=== PATIENT | male | born 1965 | race Caucasian/White ===

== ENCOUNTER 2023-01-30 18:07 | Inpatient (IN) | payer OTHER ==
[2023-01-30] MEDS ORDERED: MAGNESIUM HYDROX 2400MG/30ML ORAL SUSPENSION 30 ML CUP PO PRN (19:28)
[2023-01-30] MEDS ORDERED: BISMUTH SUBSALICYLATE 524 MG/30 ML PO PRN (19:28)
[2023-01-30] MEDS ORDERED: DICYCLOMINE HCL 10 MG CAPSULE PO PRN (19:28)
[2023-01-30] MEDS ORDERED: BENZOCAINE/MENTHOL (CHLORASEPTIC ) LOZENGE MM PRN (19:28)
[2023-01-30] MEDS ORDERED: LOPERAMIDE HCL 2 MG CAPSULE PO PRN (19:28)
[2023-01-30] MEDS ORDERED: IBUPROFEN 400 MG TABLET (FP) PO PRN (19:28)
[2023-01-30] MEDS ORDERED: MAG HYDROX/AL HYDROX/SIMETH 30 ML UNIT-DOSE CUP PO PRN (19:28)
[2023-01-30] MEDS ORDERED: NICOTINE POLACRILEX 4 MG GUM BUC PRN (19:28)
[2023-01-30] MEDS ORDERED: ACETAMINOPHEN 325 MG TABLET (FP) PO PRN (19:28)
[2023-01-30] MEDS ORDERED: guaiFENesin 600 MG TABLET.ER (FP) PO PRN (19:28)
[2023-01-30] MEDS ORDERED: ONDANSETRON *ODT* 4 MG TABLET SL PRN (19:28)
[2023-01-30] MEDS ORDERED: LORazepam 1 MG TABLET PO PRN (19:28)
[2023-01-30] MEDS ORDERED: POLYETHYLENE GLYCOL (HEALTHYLAX) 3350 17 GM PACKET PO PRN (19:28)
[2023-01-30] MEDS ORDERED: NALOXONE HCL 0.4 MG/ML VIAL IM PRN (19:28)
[2023-01-30] MEDS ORDERED: NALOXONE HCL (KLOXXADO) 8 MG SPRAY NS PRN (19:28)
[2023-01-30] MEDS ORDERED: BENZONATATE 200 MG CAPSULE PO PRN (19:28)
[2023-01-30 19:40] VITALS: BMI 26.0
[2023-01-30] MEDS: THIAMINE HCL 100 MG TABLET (FP) PO SCH (22:37)
[2023-01-30] MEDS: MELATONIN 5 MG TABLETS PO SCH (22:38)
[2023-01-30] MEDS: IBUPROFEN 600 MG TABLET (FP) PO PRN (22:40)
[2023-01-30] MEDS: LORazepam 2 MG TABLET PO SCH (22:41)
[2023-01-31] MEDS: LORazepam 2 MG TABLET PO SCH ×4 (06:00→22:11)
[2023-01-31] MEDS: NICOTINE 21 MG/24 HOURS TOPICAL PATCH TD SCH (10:42)
[2023-01-31] MEDS: PRENATAL VITAMINS W/ FOLIC ACID TABLET (FP) PO SCH (10:42)
[2023-01-31 11:02] LABS: HEMATOCRIT 42.3 % (35.4-49); HEMOGLOBIN 14.7 GM/dL (11.7-16.9); MCH 36.2 pg (25.7-33.7); MCHC 34.7 g/dl (32.0-35.9); MEAN CELL VOLUME 104.4 fl (80-96); MEAN PLT VOLUME 10.4 fl (7.5-11.1); PLATELET COUNT 167 10^3/uL (134-434); RBC 4.05 M/mm3 (4.00-5.60); RDW 14.8 % (11.9-15.9); WHITE BLOOD COUNT 8.3 K/mm3 (4.0-10.0)
[2023-01-31 11:11] LABS: ALBUMIN 3.7 g/dl (3.4-5.0)
[2023-01-31 11:12] LABS: BLOOD UREA NITROGEN 10.6 mg/dL (7-18); CREATININE 0.7 mg/dL (0.55-1.3)
[2023-01-31 11:13] LABS: CALCIUM 9.4 mg/dL (8.5-10.1)
[2023-01-31 11:14] LABS: BILIRUBIN,TOTAL 0.9 mg/dL (0.2-1); TOT PROT 7.3 g/dl (6.4-8.2)
[2023-01-31] MEDS: IBUPROFEN 600 MG TABLET (FP) PO PRN (17:22)
[2023-01-31] MEDS: MELATONIN 5 MG TABLETS PO SCH (22:10)
[2023-01-31] MEDS: THIAMINE HCL 100 MG TABLET (FP) PO SCH (22:10)
[2023-02-01] MEDS: LORazepam 1 MG TABLET PO SCH ×2 (06:00→10:26)
[2023-02-01 09:21] VITALS: BP 122/65; PULSE 60; RESP 18; TEMP 98
[2023-02-01] MEDS: PRENATAL VITAMINS W/ FOLIC ACID TABLET (FP) PO SCH (10:25)
[2023-02-01] MEDS: NICOTINE 21 MG/24 HOURS TOPICAL PATCH TD SCH (10:31)
[2023-02-02] MEDS ORDERED: LORazepam 0.5 MG TABLET PO PRN
[2023-02-02] MEDS ORDERED: LORazepam 0.5 MG TABLET PO SCH (05:00)
[2023-02-03] MEDS ORDERED: LORazepam 0.5 MG TABLET PO ONE (05:00)
== END 2023-02-01 13:24 | disposition left against medical advice (07) | DRG 770 ==
LOC: YASAS 18:07 → Y3N 20:31
PROVIDERS: ADMIT Allergy & Immunology; ATTEND Surgery
PROC: HZ2ZZZZ Detoxification Services for Substance Abuse Treatment (ICD-10-PCS; principal; 2023-01-30)
DX: F10.230 Alcohol dependence with withdrawal, uncomplicated (principal); F17.210 Nicotine dependence, cigarettes, uncomplicated; F10.280 Alcohol dependence with alcohol-induced anxiety disorder; F10.282 Alcohol dependence with alcohol-induced sleep disorder; K70.30 Alcoholic cirrhosis of liver without ascites; M54.50 Low back pain, unspecified; G89.29 Other chronic pain
CPT/HCPCS: 36415; 80053; 85027; 86780; 87811; 93005; 93010; C9803-CS; U0003; U0005

== ENCOUNTER 2025-05-26 17:06 | Inpatient (IN) | payer OTHER ==
[2025-05-26 18:24] VITALS: BMI 24.1
[2025-05-26] MEDS ORDERED: MAG HYDROX/AL HYDROX/SIMETH 30 ML UNIT-DOSE CUP PO PRN (18:38)
[2025-05-26] MEDS ORDERED: hydrOXYzine PAMOATE 25 MG CAPSULE (FP) PO PRN (18:38)
[2025-05-26] MEDS ORDERED: NICOTINE POLACRILEX 2 MG LOZENGE BC PRN (18:38)
[2025-05-26] MEDS ORDERED: ACETAMINOPHEN 325 MG TABLET (FP) PO PRN (18:38)
[2025-05-26] MEDS ORDERED: DICYCLOMINE HCL 10 MG CAPSULE PO PRN (18:38)
[2025-05-26] MEDS ORDERED: BENZONATATE 200 MG CAPSULE PO PRN (18:38)
[2025-05-26] MEDS ORDERED: METHOCARBAMOL 500 MG TABLET PO PRN (18:38)
[2025-05-26] MEDS ORDERED: IBUPROFEN 400 MG TABLET (FP) PO PRN (18:38)
[2025-05-26] MEDS ORDERED: IBUPROFEN 600 MG TABLET (FP) PO PRN (18:38)
[2025-05-26] MEDS ORDERED: BENZOCAINE/MENTHOL (CHLORASEPTIC ) LOZENGE MM PRN (18:38)
[2025-05-26] MEDS ORDERED: NALOXONE (NARCAN) HCL 4 MG/0.1 ML SPRAY NS PRN (18:38)
[2025-05-26] MEDS ORDERED: guaiFENesin 600 MG TABLET.ER (FP) PO PRN (18:38)
[2025-05-26] MEDS ORDERED: LOPERAMIDE HCL 2 MG CAPSULE PO PRN (18:38)
[2025-05-26] MEDS ORDERED: ONDANSETRON *ODT* 4 MG TABLET SL PRN (18:38)
[2025-05-26] MEDS ORDERED: MAGNESIUM HYDROX 2400MG/30ML ORAL SUSPENSION 30 ML CUP PO PRN (18:38)
[2025-05-26] MEDS ORDERED: BISMUTH SUBSALICYLATE 524 MG/30 ML PO PRN (18:38)
[2025-05-26] MEDS ORDERED: NICOTINE POLACRILEX 2 MG GUM BUC PRN (18:38)
[2025-05-26] MEDS ORDERED: POLYETHYLENE GLYCOL (HEALTHYLAX) 3350 17 GM PACKET PO PRN (18:38)
[2025-05-26] MEDS: THIAMINE 100 MG TABLET PO SCH (22:30)
[2025-05-26] MEDS: MELATONIN 5 MG TABLETS PO SCH (22:30)
[2025-05-27 09:08] VITALS: RESP 14
[2025-05-27 09:16] LABS: MCHC 33.8 g/dl (32.3-36.5); MEAN CELL VOLUME 108.3 fl (79.0-92.2); MEAN PLT VOLUME 12.8 fl (9.4-12.4); RDW 14.4 % (12.2-16.1)
[2025-05-27 09:33] LABS: GLUCOSE,RANDOM 97 mg/dL (74-106); TOT PROT 7.3 g/dl (6.4-8.2)
[2025-05-27 09:34] LABS: CO2 21 mmol/L (21-32)
[2025-05-27 09:36] LABS: ALK PHOS 262 U/L (40-150)
[2025-05-27 09:39] LABS: CREATININE 0.70 mg/dL (0.55-1.3); SGOT/AST 94 U/L (5-34); SGPT/ALT 30 U/L (0-55)
[2025-05-27] MEDS: NICOTINE 21 MG/24 HOURS TOPICAL PATCH TD SCH (10:36)
[2025-05-27] MEDS: PANTOPRAZOLE 20 MG TABLET PO SCH (10:37)
[2025-05-27] MEDS: PRENATAL VITAMINS W/ FOLIC ACID TABLET (FP) PO SCH (10:37)
[2025-05-27 13:08] VITALS: BP 105/71; PULSE 65; TEMP 97.5
== END 2025-05-27 15:02 | disposition left against medical advice (07) | DRG 770 ==
LOC: YASAS 17:06 → Y3N 19:16
PROVIDERS: ADMIT Allergy & Immunology; ATTEND Neuromusculoskeletal Medicine & OMM
PROC: HZ2ZZZZ Detoxification Services for Substance Abuse Treatment (ICD-10-PCS; principal; 2025-05-26)
DX: F10.230 Alcohol dependence with withdrawal, uncomplicated (principal); F17.210 Nicotine dependence, cigarettes, uncomplicated; I10 Essential (primary) hypertension; K70.30 Alcoholic cirrhosis of liver without ascites; M54.50 Low back pain, unspecified; G89.29 Other chronic pain
CPT/HCPCS: 36415; 80053; 80307; 85027; 86780